=== PATIENT | male | born 1980 | race Caucasian/White ===

== ENCOUNTER 2021-09-09 20:54 | Emergency (ER) | payer OTHER, SELFPAY ==
[2021-09-09 21:53] VITALS: BP 124/77; PULSE 59; RESP 20; TEMP 36.6; O2SAT 97; BMI 27.8
[2021-09-09 21:57] LABS: Basophils Percent Auto 0.4 % (0-2); Eosinophils Absolute Auto 0.2 X10*3/uL (0.0-0.4); Eosinophils Percent Auto 1.8 % (0-4); Hematocrit 41.6 % (42.0-52.0); Hemoglobin 13.8 g/dl (14.0-18.0); Imm Gran Abs Auto 0.03 X10*3/uL (0.00-0.03); Imm Gran Pct Auto 0.3 % (0.0-0.4); Lymphocytes Absolute Auto 1.5 X10*3/uL (1.2-4.9); Lymphocytes Percent Auto 14.5 % (20-40); MANUAL DIFF FLAG NO; Mean Corpuscular HGB Conc 33.2 g/dl (31.0-36.0); Mean Corpuscular Hemoglobin 30.1 pg (27.0-33.0); Mean Corpuscular Volume 90.6 fL (80.0-98.0); Mean Platelet Volume 9.7 fL (9.4-12.4); Monocytes Absolute Auto 0.7 X10*3/uL (0.1-1.2); Monocytes Percent Auto 7.2 % (2-11); Neutrophils Absolute Auto 7.7 x10*3/uL (2.0-8.3); Neutrophils Percent Auto 75.8 % (45-73); Platelet Count 258 X10*3/uL (160-400); Red Blood Count 4.59 X10*6/uL (4.60-5.80); Red Cell Distribution Width 12.2 % (11.0-16.0); White Blood Count 10.1 X10*3/uL (4.8-10.8)
[2021-09-09 22:11] LABS: Alanine Aminotransferase 12 U/L (0-40); Albumin Level 4.4 g/dL (3.5-5.0); Alkaline Phosphatase 66 U/L (39-117); Anion Gap 12 (12-20); Aspartate Amino Transferase 12 U/L (5-37); Bilirubin Total 1.4 mg/dL (0.0-1.0); Blood Urea Nitrogen 9 mg/dL (9-16); Calcium 9.5 mg/dL (8.4-10.2); Carbon Dioxide 26 mmol/L (22-29); Chloride 108 mmol/L (96-108); Creatinine Clr Calc Pharmacy 98.1; Estimated Glomerular Filt Rate > 60; Glucose Random 101 mg/dL (60-115); Potassium 4.1 mmol/L (3.3-5.1); Sodium 142 mmol/L (135-145)
--- NOTE | 2021-09-10 02:08 | ED_ITS ---
HPI - Nausea/Vomiting/Diarrhea General Chief complaint: Nausea/Vomiting/Diarrhea Stated complaint: vomiting,diarrhea,sweating Time Seen by Provider: 09/10/21 02:08 Source: patient Mode of arrival: ambulatory Limitations: no limitations History of Present Illness HPI Narrative: patient with a 2 month history of nausea and vomiting and mild diarrhea for 2 months. patient is scheduled to see GI in November. he comes in today because he feels that his symptoms are worse. Patient has not been seen at [place] prior, only [facility]. He has been on carafate and laurent ORELLANA elicited complaint: nausea, vomiting and diarrhea Onset (ago): week(s) Associated nausea: Yes Associated abdominal pain: Yes Pain consistency: intermittent Severity: moderate Quality: cramping Exacerbating factors: eating Relieving factors: eating Related Data Previous Rx's Medication Instructions Recorded pantoprazole 40 mg tablet,delayed 40 mg PO DAILY #20 tab 09/10/21 release (Protonix) promethazine 25 mg tablet 25 mg PO Q6H PRN #30 tab 09/10/21 Allergies Allergy/AdvReac Type Severity Reaction Status Date / Time azithromycin Allergy Difficulty Verified 09/09/21 21:52 [From Zithromax Z-Kishore] Breathing zolpidem [From Ambien] Allergy Hives Verified 09/09/21 21:52 Review of Systems Constitutional: Constitutional: Reports no additional constitutional complaints Eyes: Eyes: Reports no additional eye complaints ENT: Denies dizziness Cardiovascular: Cardiovascular: Reports no additional cardiovascular complaints Respiratory: Respiratory: Reports as per HPI Gastrointestinal: Gastrointestinal: Reports nausea Musculoskeletal: Musculoskeletal: Reports no additional musculoskeletal complaints Integumentary/Breasts: Skin/Breast: Denies rash Neurologic: Reports system reviewed and no additional complaints, except as documented, Denies dizziness and Denies Sensory deficit (Neuro) Psychiatric: Psychiatric: Denies anxiety PMFSH Social History Social History Advance Directives: No Advance Directives Information Provided: No Physical Exam Vital Signs: Vital Signs: Last Vital Signs Temp 98.3 F 09/10/21 02:41 Pulse 59 09/09/21 21:53 Resp 16 09/10/21 02:41 BP 120/80 09/10/21 02:41 Pulse Ox 98 09/10/21 02:41 BMI result Body Mass Index 27.8 Const: General: healthy appearing Nutritional Appearance: average body habitus Orientation/consciousness: oriented to person and patient oriented x3 Limitations: no limitations HEENT: Head: Yes normal to inspection Ears: external ears normal General nose exam: Normal external nose present Mouth: Normal oral and palatal mucosa present and oropharynx normal Throat: Yes posterior oropharynx normal Eyes: General: appearance normal, both eyes and all related structures Neck: Other: supple Neck: Yes normal visual inspection Chest: Chest palpation & inspection: normal inspection of the chest Resp: Auscultation: clear to auscultation bilaterally Cardio: Jugular venous distension: no JVD Rate: regular rate Rhythm: re gular rhythm Heart sounds: S1 normal heart sound present and S2 normal heart sound present GI: Inspection: Yes normal to inspection Palpation (GI): Soft to palpation, nontender and No hepatosplenomegaly present Auscultation: normal bowel sounds : General: Yes no CVA tenderness Back/Spine/Pelvis: Back: no CVA tenderness Skin: General skin exam: no rashes or lesions noted Neuro: General: oriented to person and patient oriented x3 Cranial nerves: Yes CN's II-XII intact bilaterally Motor exam (neuro): 5/5 motor strength present throughout Sensory Exam: No Sensory deficit (Neuro) Extrem: General: Yes normal to inspection Psych: Appearance: grossly normal Course Reevaluation(s) Reevaluation #1: patient with soft abdomen and pain out of proportion, will place him on protonix and phenergan and dc home Time: 03:50 MDM - Nausea/Vomiting/Diarrhea Lab Data Result diagrams: 09/09/21 21:52 09/09/21 21:52 Labs: Lab Results 09/09/21 09/09/21 Range/Units 21:52 21:52 WBC 10.1 (4.8-10.8) X10*3/uL RBC 4.59 L (4.60-5.80) X10*6/uL Hgb 13.8 L (14.0-18.0) g/dl Hct 41.6 L (42.0-52.0) % MCV 90.6 (80.0-98.0) fL MCH 30.1 (27.0-33.0) pg MCHC 33.2 (31.0-36.0) g/dl RDW 12.2 (11.0-16.0) % Plt Count 258 (160-400) X10*3/uL MPV 9.7 (9.4-12.4) fL Immature Gran % (Auto) 0.3 (0.0-0.4) % Neut % (Auto) 75.8 H (45-73) % Lymph % (Auto) 14.5 L (20-40) % [place] % (Auto) 7.2 (2-11) % Eos % (Auto) 1.8 (0-4) % Baso % (Auto) 0.4 (0-2) % Lymph # (Auto) 1.5 (1.2-4.9) X10*3/uL [place] # (Auto) 0.7 (0.1-1.2) X10*3/uL Eos # (Auto) 0.2 (0.0-0.4) X10*3/uL Baso # (Auto) 0.0 (0.0-0.2) X10*3/uL Abs Immat Gran (auto) 0.03 (0.00-0.03) X10*3/uL Absolute Neuts (auto) 7.7 (2.0-8.3) x10*3/uL Absolute Nucleated RBC 0.000 (0.0-0.012) X10*3/uL Nucleated RBC % (auto) 0.0 (0.0-0.2) /100WBC Sodium 142 (135-145) mmol/L Potassium 4.1 (3.3-5.1) mmol/L Chloride 108 (96-108) mmol/L Carbon Dioxide 26 (22-29) mmol/L Anion Gap 12 (12-20) BUN 9 (9-16) mg/dL Creatinine 1.12 (0.5-1.4) mg/dL Estim Creat Clear Calc 98.1 Estimated GFR > 60 Random Glucose 101 (60-115) mg/dL Calcium 9.5 (8.4-10.2) mg/dL Total Bilirubin 1.4 H (0.0-1.0) mg/dL AST 12 (5-37) U/L ALT 12 (0-40) U/L Alkaline Phosphatase 66 (39-117) U/L Total Protein 7.0 (6.5-8.0) g/dL Albumin 4.4 (3.5-5.0) g/dL Discharge Plan Discharge Clinical Impression: Nausea & vomiting Patient Disposition: Home, Self-Care Instructions: Acute Nausea and Vomiting (ED) Prescriptions: New pantoprazole [Protonix] 40 mg tablet,delayed release (DR/EC) 40 mg PO DAILY Qty: 20 0RF promethazine 25 mg tablet 25 mg PO Q6H PRN (Reason: nausea and vomiting) Qty: 30 0RF Referrals: Mehran Guzman MD [Primary Care Provider] - 1 week
--- NOTE | 2021-09-10 02:08 | PC.NURSE ---
at bedside for primary eval.
[2021-09-10] MEDS: 0.9 % Sodium Chloride 1,000 ML 999 ML IVCONT ×2 (02:38→03:15)
[2021-09-10 02:41] VITALS: BP 120/80; RESP 16; TEMP 36.8; O2SAT 98
--- NOTE | 2021-09-10 02:43 | PC.NURSE ---
IV established, pt medicated per MAR.
== END 2021-09-10 04:50 | disposition home or self-care (01) ==
PROVIDERS: Emergency Provider Emergency Medicine; PCP Internal Medicine
DX: R11.2 Nausea with vomiting, unspecified (principal)
CPT/HCPCS: 36415; 80053; 85025; 96361; 96374; 99283; 99284; J2550

== ENCOUNTER 2025-03-28 08:03 | Outpatient (AMB) | payer OTHER, SELFPAY ==
[2025-03-28 08:04] VITALS: BMI 31.9
--- NOTE | 2025-03-28 08:04 | A.PHYSOV_ITS ---
Vital Signs 03/28/25 08:04 Height 6 ft Weight 235 lb BMI 31.9 Intake Visit Reasons: F/U after injection 02/02/2025 Intake Note: Patient is a 44 year old male in office for a follow up after Left L4 Transforaminal Epidural Injection 02/02/25. Good relief in leg Allergies azithromycin (From Zithromax Z-Kishoer) Allergy (Verified 03/28/25 08:04) Difficulty Breathing zolpidem (From Ambien) Allergy (Verified 03/28/25 08:04) Hives HPI Comments Details: History of Present Illness The patient is a 44 year old male presenting for a follow-up visit for chronic lower back pain and left-sided lumbar radiculitis. He has a history of an L3-L4 lumbar fusion and has undergone a variety of lumbar procedures, but continues to report persistent left-sided lumbar radicular symptoms, including numbness and tingling in his left leg. A lumbar sacral spine MRI from October 08, 2024, showed fusion hardware at L3-L4 with mild neuroforaminal narrowing. He had a left L4 transforaminal injection on November 16, 2024, which provided no significant benefit. Following a subsequent left L4 transforaminal injection below his fusion on February 02, 2025, he experienced resolution of pain and tingling down his left leg, although the relief was brief and the symptoms returned. Approximately two weeks prior to this visit, he had a slip and fall on black ice, landing on his left side, which resulted in worsened back pain and a swollen ankle. He was evaluated at [facility] where X-rays were performed and revealed no fractures. His primary care physician manages his pain with hydrocodone 7.5 mg four times a day. He also reports taking tramadol three times a day, effectively taking a pain medication every three hours, and experiences sleep disruption due to pain. About two and a half years ago, he had a discussion with [facility] regarding a spinal cord stimulator but decided against it, as it was believed it would help the numbness and tingling but not the back pain. Pain Description - Location: Chronic lower back pain and left-sided radicular symptoms. - Quality: Numbness and tingling in the left leg. - Exacerbating Factors: A recent fall on ice has worsened the back pain. - Relieving Factors: A left L4 transforaminal injection on February 02, 2025, provided temporary relief of the left leg pain and tingling. - Functional Interference: Pain disrupts sleep, causing him to wake in the middle of the night to take medication. Results - Imaging: - Lumbar sacral spine MRI (10/08/2024): Demonstrated fusion hardware at the L3- L4 level with mild neuroforaminal narrowing. - Ankle X-rays (March 2025): No fractures identified. - Procedures: - Left L4 transforaminal injection (11/16/2024): No significant benefit. - Left L4 transforaminal injection (02/02/2025): Provided brief relief of radicular symptoms. [facility] Medical History (Updated 03/28/25 @ 08:26 by Marty Oshea DO) Chronic lower back pain Post laminectomy syndrome Surgical History History of tonsillectomy History of lumbar fusion Social History Household Members: Spouse Alcohol intake: current Alcohol intake frequency: holidays/special occasions only Substance Use Type: Marijuana Current occupational status: employed Review of Systems Narrative Review of Systems - Musculoskeletal: Reports chronic low back pain, which has worsened after a recent fall. - Reports ankle swelling after the fall. - Neurological: Reports a history of left-sided radicular symptoms, including numbness and tingling in the left leg. - Reports current resolution of radicular pain and tingling in the left leg following a recent injection. Physical Exam Exam Exam: Physical Exam Patient appears to be in no acute distress, appropriately conversant oriented. He ambulates without antalgia. Dural tension signs were negative. Patient demonstrated no upper motor neuron signs. The SI provocative maneuvers were negative. Neurological examination was nonfocal. Vital Signs: BMI result Body Mass Index 31.9 Assessment & Plan Assessment & Plan (1) Post laminectomy syndrome: Code(s): M96.1 - Postlaminectomy syndrome, not elsewhere classified Category: Medical (2) Chronic lower back pain: Code(s): M54.50 - Low back pain, unspecified; G89.29 - Other chronic pain Category: Medical Plan Pain Management - Analgesia: The patient is prescribed hydrocodone 7.5 mg four times a day by his primary care physician. - He reports also taking tramadol three times a day, taking a pain medication every three hours. - He notes his radicular symptoms improved after his last injection, but his back pain persists. - Activities of Daily Living: Pain interferes with his sleep, as he wakes in the middle of the night and must take a pill and wait for it to take effect before returning to sleep. Plan Patient was informed and verbally consented to the use of an ambient scribe for clinic note documentation during this visit. 1. Chronic Lower Back Pain The patient has chronic low back pain, status post L3-L4 fusion, which has been exacerbated by a recent fall. Given that his pain persists despite multiple interventions, we discussed alternative treatments for core back pain. We discussed the Sprint peripheral nerve stimulation system as a potential option; this is a temporary device implanted for a few weeks that may provide long-term relief. A referral will be placed to a pain management group in [place], to further explore this option. We also discussed buprenorphine patches as an alternative to his current hydrocodone regimen, noting the potential for steadier pain control but also the challenges of transitioning. No changes were made to his current medication regimen at this visit. 2. Left Lumbar Radiculitis The patient's left-sided radicular symptoms, including pain and tingling, responded well to the left L4 transforaminal injection on February 02, 2025. Although the symptoms returned, the positive response indicates the injection was worthwhile. If the leg pain recurs, we can repeat the injection. Discussion Notes I discussed with the patient his ongoing chronic low back pain and left radiculitis, noting he is status-post L3-L4 fusion. I acknowledged that his recent L4 transforaminal injection on February 02, 2025 helped his leg symptoms, and we agreed this could be repeated if the leg pain returns. I explained that his primary issue is now post-fusion chronic back pain, which is often difficult to treat. We explored alternative therapies, including the Sprint peripheral nerve stimulation system. I described this as a temporary device, implanted for several weeks, that may provide longer-term relief for his core back pain. The patient was agreeable to this, and I will place a referral to a pain management group in [place] to discuss this option further. We also discussed his current oral pain medication regimen. I explained the potential pros and cons of switching from hydrocodone to a buprenorphine patch, including the possibility of steadier pain control versus the risk of increased pain during the transition period. The patient expressed hesitation about this change, so we will make no adjustments to his medications at this time. Patient Instructions - Your recent injection helped the pain and tingling in your leg. - If that leg pain comes back, we can do the injection again. - To help with your chronic back pain, I am referring you to a automotive painter helper in [place]. - They will discuss a treatment called the Sprint system with you. - You can search for Sprint peripheral nerve stimulation system online to learn more about it. - My office will put in the referral, and their office will call you to schedule an appointment. - Continue taking your pain medications as prescribed by your primary care doctor. Orders: Referrals Pain Management Referral G89.29 - Other chronic pain, M54.50 - Low back pain, unspecified, M96.1 - Postlaminectomy syndrome, not elsewhere classified Coding Level of Care Code Est Pt Level 4 (92241) Add On Problem Visit Only Diagnoses Post laminectomy syndrome M96.1 Chronic lower back pain M54.50; G89.29
== END 2025-03-28 08:23 | disposition home or self-care (01) ==
PROVIDERS: PCP Internal Medicine; Visit Provider Physical Medicine & Rehabilitation
DX: M96.1 Postlaminectomy syndrome, not elsewhere classified (principal); M54.50 Low back pain, unspecified; G89.29 Other chronic pain
CPT/HCPCS: 99214